=== PATIENT | male | born 1955 | race Caucasian/White ===

== ENCOUNTER 2018-12-28 11:57 | Emergency (ER) | payer MEDICAID ==
[~2018-12-28] VITALS: Ht 167.6 cm; Wt 100.0 kg
[2018-12-28] MEDS ORDERED: FINA5TAB11 PO (12:10)
[2018-12-28] MEDS ORDERED: TAMS-11 PO (12:10)
[2018-12-28 13:24] LABS: CLARITY URINE TURBID (CLEAR); COLOR URINE YELLOW (YELLOW); KETONES URINE NEGATIVE (NEGATIVE); LEUKOCYTE ESTERASE URINE 3+ (NEGATIVE); NITRITE URINE POSITIVE (NEGATIVE); OCCULT BLOOD URINE 3+ (NEGATIVE); PH URINE 6.5 (4.5-8.0); PROTEIN URINE 2+ (NEGATIVE); SPECIFIC GRAVITY URINE 1.019 (1.005-1.030); UROBILINOGEN URINE 0.2 E.U./dL (0.2-1.0)
[2018-12-28 14:55] VITALS: BP 124/68
== END 2018-12-28 15:25 | disposition home or self-care (01) ==
LOC: ER 11:57
DX: Z46.6 Encounter for fitting and adjustment of urinary device (principal); N39.0 Urinary tract infection, site not specified; N40.1 Benign prostatic hyperplasia with lower urinary tract symptoms; R33.8 Other retention of urine
CPT/HCPCS: 51702; 81003; 87077; 87186; 99284

== ENCOUNTER 2019-03-01 13:31 | Emergency (ER) | payer MEDICAID ==
[~2019-03-01] VITALS: Ht 165.1 cm; Wt 100.0 kg
[~2019-03-01 13:31] MED LIST: FINA5TAB11 PO; TAMS-11 PO
[2019-03-01 20:30] VITALS: BP 145/79
== END 2019-03-01 20:33 | disposition home or self-care (01) ==
LOC: ER 13:31
DX: Z46.6 Encounter for fitting and adjustment of urinary device (principal); N40.0 Benign prostatic hyperplasia without lower urinary tract symptoms
CPT/HCPCS: 51702; 99284